=== PATIENT | male | born 1975 | race Caucasian/White ===

== ENCOUNTER 2017-10-10 21:12 | Emergency (ER) | payer OTHER ==
[~2017-10-10] VITALS: Ht 180.3 cm; Wt 109.1 kg
[~2017-10-10 21:12] MED LIST: AMBIEN 10MG10 MG PO; AMBIEN CR6.25 MG PO; ANUSOL-HC SUPPO25 MG RC; CEPHALEXIN500 M1 PO; EFFEXOR-XR150 MG PO; MULTI VITAMINS1 TAB PO; NO HOME MEDICATIONS; NORCO 325 MG-51 TAB PO; PREVACID 30MG30 M1 PO; TUMS500 MG
[2017-10-10 21:15] VITALS: TEMP 98.2
[2017-10-10 22:05] LABS: BASO # 0.1 (0.0-0.2); BASO % 0.6 % (0.0-2.0); EOS # 0.2 (0.0-0.7); EOS % 1.3 % (0-4.0); GRAN % 62.8 % (42.2-75.2); HEMATOCRIT 45.5 % (42.0-52.0); HEMOGLOBIN 15.7 g/dl (13.5-18.0); LYMPH # 4.6 (1.2-3.4); LYMPH % 28.8 % (20.0-51.0); MEAN CELL VOLUME 87 fl (80.0-100.0); MEAN CORPUSCULAR HEMOGLOBIN 30 pg (27.0-31.0); MEAN CORPUSCULAR HGB CONC 35 g/dl (33.0-37.0); MEAN PLATELET VOLUME 9.7 fl (7.4-10.4); MONO # 0.9 (0.1-0.6); MONO % 5.9 % (1.7-9.3); PLATELET COUNT 219 K/mm3 (130-400); RED BLOOD COUNT 5.22 M/mm3 (4.20-5.60)
[2017-10-10 22:20] LABS: ALBUMIN 4.8 gm/dL (3.5-5.0); BILIRUBIN,TOTAL 0.5 mg/dL (0.0-1.0); C-REACTIVE PROTEIN 0.6 mg/dL (0.0-0.9); CALCIUM 9.4 mg/dL (8.4-10.2); CREATININE, serum 1.13 mg/dL (0.66-1.25); POTASSIUM 3.7 mmol/L (3.4-5.0)
[2017-10-11 00:20] LABS: COLLECTION METHOD CLEAN CATCH
[2017-10-11 00:25] LABS: MUCOUS Present /lpf; PH 5 (5-8); SQUAMOUS EPITHELIAL 0-2 /hpf; URINE APPEARANCE Clear; URINE BACTERIA None Seen /hpf; URINE BILIRUBIN Negative (NEGATIVE); URINE BLOOD Negative (NEGATIVE); URINE COLOR Yellow; URINE GLUCOSE Negative (NEGATIVE); URINE KETONE Negative (NEGATIVE); URINE LEUKOCYTE ESTERASE Negative (NEGATIVE); URINE NITRATE Negative (NEGATIVE); URINE PROTEIN(semi-quant) Negative (NEGATIVE)
[2017-10-11] MEDS ORDERED: NORCO 325 MG-51 TAB PO (00:54)
[2017-10-11] MEDS ORDERED: PHENERGAN 25 TA25 MG PO (00:54)
[2017-10-11 00:59] VITALS: BP 124/78; PULSE 82
== END 2017-10-11 01:11 | disposition home or self-care (01) ==
LOC: COL.ER 21:12
PROVIDERS: Physician Assistant
DX: R10.31 Right lower quadrant pain (principal); I10 Essential (primary) hypertension; K21.9 Gastro-esophageal reflux disease without esophagitis; E78.5 Hyperlipidemia, unspecified; F43.10 Post-traumatic stress disorder, unspecified; F17.210 Nicotine dependence, cigarettes, uncomplicated
CPT/HCPCS: J1170; J2405; J7030; J7050; Q9967

== ENCOUNTER 2018-04-26 06:49 | Day surgery (SDC) | payer OTHER ==
[~2018-04-26] VITALS: Ht 180.3 cm; Wt 103.0 kg
[2018-04-26] VITALS (11 sets, daily range): BP systolic 133–147; BP diastolic 72–99; PULSE 77–104; TEMP 97.5–98.5
[~2018-04-26 06:49] MED LIST changes: +PHENERGAN 25 TA25 MG PO
[2018-04-26] MEDS ORDERED: INDERAL 10MG10 MG PO (08:04)
[2018-04-26] MEDS ORDERED: LIPITOR 10MG10 MG PO (08:05)
[2018-04-26] MEDS ORDERED: ZANTAC 300300 MG PO (08:05)
[2018-04-27 03:42] VITALS: BP 143/83; PULSE 87; TEMP 98.2
[2018-04-27 08:08] VITALS: BP 149/88; PULSE 73; TEMP 98.4
== END 2018-04-27 09:20 | disposition home or self-care (01) ==
LOC: SURG 06:49 → INPTSU 06:49 → SDCO 06:49 → EDSTATUS 09:00 → SURG 09:00 → SDCO 09:00 → SURG 12:52 → INPTSU 12:52 → SDCO 04-27 09:20 → SURG 04-27 09:20
DX: K44.9 Diaphragmatic hernia without obstruction or gangrene (principal); K21.0 Gastro-esophageal reflux disease with esophagitis; G47.00 Insomnia, unspecified; K59.00 Constipation, unspecified; E78.2 Mixed hyperlipidemia; I10 Essential (primary) hypertension; G25.81 Restless legs syndrome; F32.9 Major depressive disorder, single episode, unspecified; F43.10 Post-traumatic stress disorder, unspecified; F17.210 Nicotine dependence, cigarettes, uncomplicated
CPT/HCPCS: A9284; C1713; C1781; J0360; J0690; J1100; J1885; J2250; J2405; J2704; J2710; J3010; J7120

== ENCOUNTER 2018-04-29 02:21 | Emergency (ER) | payer OTHER ==
[~2018-04-29] VITALS: Ht 180.3 cm; Wt 100.0 kg
[~2018-04-29 02:21] MED LIST changes: +INDERAL 10MG10 MG PO; +LIPITOR 10MG10 MG PO; +ZANTAC 300300 MG PO
[2018-04-29 02:25] VITALS: PULSE 104; TEMP 98.9
[2018-04-29] MEDS ORDERED: NORCO 325 MG-51 TAB (02:48)
[2018-04-29 03:10] LABS: BASO # 0.1 (0.0-0.2); BASO % 0.5 % (0.0-2.0); EOS # 0.6 (0.0-0.7); EOS % 3.4 % (0-4.0); GRAN # 11.7 (1.4-6.5); GRAN % 71.1 % (42.2-75.2); HEMATOCRIT 47.9 % (42.0-52.0); HEMOGLOBIN 16.1 g/dl (13.5-18.0); LYMPH # 2.7 (1.2-3.4); LYMPH % 16.3 % (20.0-51.0); MEAN CELL VOLUME 87 fl (80.0-100.0); MEAN CORPUSCULAR HEMOGLOBIN 29 pg (27.0-31.0); MEAN CORPUSCULAR HGB CONC 34 g/dl (33.0-37.0); MEAN PLATELET VOLUME 10.1 fl (7.4-10.4); MONO # 1.3 (0.1-0.6); MONO % 8.1 % (1.7-9.3); PLATELET COUNT 228 K/mm3 (130-400); RED BLOOD COUNT 5.52 M/mm3 (4.20-5.60); REDCELL DISTRIBUTION WIDTH-CV 13.4 % (11.5-14.5)
[2018-04-29 03:19] LABS: ALANINE AMINOTRANSFERASE 75 U/L (21-72); ALKALINE PHOSPHATASE 105 U/L (50-136); ANION GAP 13 mmol/L (7-16); AST,SGOT 30 U/L (15-37); BLOOD UREA NITROGEN 14 mg/dL (9-20); CALCIUM 8.6 mg/dL (8.4-10.2); CARBON DIOXIDE 23 mmol/L (22-30); CHLORIDE 105 mmol/L (98-107); CREATININE, serum 0.76 mg/dL (0.66-1.25); GLUCOSE 112 mg/dL (74-106); POTASSIUM 3.3 mmol/L (3.4-5.0); SODIUM 141 mmol/L (137-145); TOTAL PROTEIN 7.2 gm/dL (6.4-8.2)
[2018-04-29 03:20] LABS: LIPASE < 10 U/L (23-300)
[2018-04-29 05:22] LABS: COLLECTION METHOD CLEAN CATCH
[2018-04-29 05:29] LABS: MUCOUS Present /lpf; PH 6 (5-8); SQUAMOUS EPITHELIAL None Seen /hpf; URINE APPEARANCE Clear; URINE BACTERIA None Seen /hpf; URINE BILIRUBIN Negative (NEGATIVE); URINE BLOOD Negative (NEGATIVE); URINE COLOR Yellow; URINE GLUCOSE Negative (NEGATIVE); URINE KETONE 1+ (NEGATIVE); URINE LEUKOCYTE ESTERASE Negative (NEGATIVE); URINE NITRATE Negative (NEGATIVE); URINE PROTEIN(semi-quant) 1+ (NEGATIVE); URINE RBC 0-2 /hpf; URINE UROBILINOGEN >=4.0 mg/dL (NEGATIVE)
[2018-04-29] MEDS ORDERED: MIRALAX 255 GM255 GM PO (06:34)
[2018-04-29] MEDS ORDERED: DULCOLAX STOOL100 MG PO (06:34)
[2018-04-29] MEDS ORDERED: PERCOCET 325 MG1 TA2 PO (06:34)
[2018-04-29] MEDS ORDERED: FLEXERIL 1010 MG/TAB PO (06:35)
[2018-04-29 07:19] VITALS: BP 150/108
== END 2018-04-29 07:12 | disposition home or self-care (01) ==
LOC: COL.ER 02:21
PROVIDERS: Emergency Medicine
DX: K59.00 Constipation, unspecified (principal); M54.9 Dorsalgia, unspecified; G89.18 Other acute postprocedural pain; I10 Essential (primary) hypertension; E78.5 Hyperlipidemia, unspecified; F32.9 Major depressive disorder, single episode, unspecified; K21.0 Gastro-esophageal reflux disease with esophagitis; G47.30 Sleep apnea, unspecified; Z79.891 Long term (current) use of opiate analgesic
CPT/HCPCS: J1885; J2270; J2405; J7030; Q9967

== ENCOUNTER 2018-05-01 18:41 | Observation (INO) | payer OTHER ==
[~2018-05-01] VITALS: Ht 332.7 cm; Wt 99.0 kg
[~2018-05-01 18:41] MED LIST changes: +DULCOLAX STOOL100 MG PO; +FLEXERIL 1010 MG/TAB PO; +MIRALAX 255 GM255 GM PO; +NORCO 325 MG-51 TAB; +PERCOCET 325 MG1 TA2 PO
[2018-05-01 19:58] LABS: ALBUMIN 4.6 gm/dL (3.5-5.0); BILIRUBIN,TOTAL 1.3 mg/dL (0.0-1.0); CALCIUM 9.6 mg/dL (8.4-10.2); CREATININE, serum 0.89 mg/dL (0.66-1.25); POTASSIUM 3.9 mmol/L (3.4-5.0); TOTAL PROTEIN 8.5 gm/dL (6.4-8.2)
[2018-05-01] MEDS ORDERED: EFFEXOR100 MG PO (20:11)
[2018-05-01] MEDS ORDERED: INDERAL 10MG10 MG PO (20:11)
[2018-05-01] MEDS ORDERED: AMBIEN 10MG10 MG PO (20:13)
[2018-05-01 20:21] LABS: BASO # 0.1 (0.0-0.2); BASO % 0.5 % (0.0-2.0); EOS # 0.4 (0.0-0.7); EOS % 2.4 % (0-4.0); GRAN # 13.6 (1.4-6.5); GRAN % 76.9 % (42.2-75.2); HEMATOCRIT 50.1 % (42.0-52.0); HEMOGLOBIN 16.8 g/dl (13.5-18.0); LYMPH # 2.3 (1.2-3.4); LYMPH % 12.9 % (20.0-51.0); MEAN CELL VOLUME 87 fl (80.0-100.0); MEAN CORPUSCULAR HEMOGLOBIN 29 pg (27.0-31.0); MEAN CORPUSCULAR HGB CONC 34 g/dl (33.0-37.0); MEAN PLATELET VOLUME 10.5 fl (7.4-10.4); MONO # 1.2 (0.1-0.6); MONO % 6.6 % (1.7-9.3); PLATELET COUNT 279 K/mm3 (130-400); RED BLOOD COUNT 5.79 M/mm3 (4.20-5.60)
[2018-05-01] MEDS ORDERED: NORCO 325 MG-51 TAB PO (20:54)
[2018-05-01] MEDS ORDERED: LIPITOR 10MG10 MG PO (20:55)
[2018-05-01 22:45] VITALS: BP 161/99; PULSE 91; TEMP 98.6
[2018-05-02 03:42] VITALS: BP 145/94; PULSE 87; TEMP 97.9
[2018-05-02 07:34] VITALS: BP 141/92; PULSE 79; TEMP 97.8
[2018-05-02 12:36] VITALS: BP 137/79; PULSE 100; TEMP 98.7
[2018-05-02 16:51] VITALS: BP 137/93; PULSE 88; TEMP 97.8
[2018-05-02 20:00] VITALS: BP 150/97; PULSE 98; TEMP 98.9
[2018-05-03] VITALS: BP 147/91; PULSE 94; TEMP 98.5
[2018-05-03 04:00] VITALS: BP 143/100; PULSE 93; TEMP 97.6
[2018-05-03 07:21] LABS: HEMATOCRIT 45.1 % (42.0-52.0); MEAN CELL VOLUME 89 fl (80.0-100.0); MEAN CORPUSCULAR HEMOGLOBIN 29 pg (27.0-31.0); MEAN CORPUSCULAR HGB CONC 33 g/dl (33.0-37.0); MEAN PLATELET VOLUME 10.2 fl (7.4-10.4); PLATELET COUNT 223 K/mm3 (130-400); RED BLOOD COUNT 5.07 M/mm3 (4.20-5.60)
[2018-05-03 07:22] LABS: HEMOGLOBIN 14.8 g/dl (13.5-18.0)
[2018-05-03 07:39] LABS: CALCIUM 9.2 mg/dL (8.4-10.2); CREATININE, serum 0.75 mg/dL (0.66-1.25)
[2018-05-03 08:00] VITALS: BP 153/97; PULSE 99; TEMP 98.6
[2018-05-03 12:20] VITALS: BP 146/91; PULSE 94; TEMP 98.6
== END 2018-05-03 14:35 | disposition home or self-care (01) ==
LOC: COL.ER 18:41 → SURG 20:39
PROVIDERS: Emergency Medicine; Surgery
DX: R10.9 Unspecified abdominal pain (principal); K21.9 Gastro-esophageal reflux disease without esophagitis; G47.30 Sleep apnea, unspecified; I10 Essential (primary) hypertension; K59.00 Constipation, unspecified; G25.81 Restless legs syndrome; E78.5 Hyperlipidemia, unspecified; F43.10 Post-traumatic stress disorder, unspecified; F32.9 Major depressive disorder, single episode, unspecified; F17.210 Nicotine dependence, cigarettes, uncomplicated
CPT/HCPCS: G0378; J1170; J1956; J2765; J7030

== ENCOUNTER → 2018-08-03 | Outpatient (CLI) | payer OTHER ==
[~2018-08-03] MED LIST changes: +EFFEXOR100 MG PO
== END ==
LOC: COL.RAD 07:00
DX: M25.512 Pain in left shoulder (principal)

== ENCOUNTER 2018-11-30 20:20 | Emergency (ER) | payer OTHER ==
[2018-11-30 20:23] VITALS: BP 139/101; TEMP 97.9
[2018-11-30] MEDS ORDERED: AMBIEN CR6.25 MG PO (20:54)
[2018-11-30] MEDS ORDERED: MIRAPEX0.5 MG PO (20:56)
[2018-11-30 21:10] LABS: BASO # 0.1 (0.0-0.2); BASO % 0.7 % (0.0-2.0); EOS # 0.2 (0.0-0.7); EOS % 1.5 % (0-4.0); GRAN # 7.4 (1.4-6.5); GRAN % 59.3 % (42.2-75.2); HEMATOCRIT 48.6 % (42.0-52.0); HEMOGLOBIN 16.5 g/dl (13.5-18.0); LYMPH # 3.9 (1.2-3.4); LYMPH % 31.7 % (20.0-51.0); MEAN CELL VOLUME 87 fl (80.0-100.0); MEAN CORPUSCULAR HEMOGLOBIN 30 pg (27.0-31.0); MEAN CORPUSCULAR HGB CONC 34 g/dl (33.0-37.0); MONO # 0.8 (0.1-0.6); MONO % 6.3 % (1.7-9.3); PLATELET COUNT 207 K/mm3 (130-400); REDCELL DISTRIBUTION WIDTH-CV 13.5 % (11.5-14.5)
[2018-11-30 21:21] LABS: ALANINE AMINOTRANSFERASE 26 U/L (21-72); ALBUMIN 4.4 gm/dL (3.5-5.0); ALKALINE PHOSPHATASE 133 U/L (50-136); ANION GAP 8 mmol/L (7-16); AST,SGOT 29 U/L (15-37); BILIRUBIN,TOTAL 0.4 mg/dL (0.0-1.0); BLOOD UREA NITROGEN 13 mg/dL (9-20); CALCIUM 9.6 mg/dL (8.4-10.2); CARBON DIOXIDE 27 mmol/L (22-30); CHLORIDE 105 mmol/L (98-107); CREATININE, serum 0.93 mg/dL (0.66-1.25); GLUCOSE 100 mg/dL (74-106); LIPASE 59 U/L (23-300); POTASSIUM 3.9 mmol/L (3.4-5.0); SODIUM 140 mmol/L (137-145); TOTAL PROTEIN 7.7 gm/dL (6.4-8.2)
[2018-11-30 21:23] LABS: C-REACTIVE PROTEIN < 0.5 mg/dL (0.0-0.9)
[2018-11-30 22:17] LABS: COLLECTION METHOD CLEAN CATCH
[2018-11-30 22:22] LABS: MUCOUS Present /lpf; PH 7 (5-8); SQUAMOUS EPITHELIAL 0-2 /hpf; URINE APPEARANCE Clear; URINE BACTERIA None Seen /hpf; URINE BILIRUBIN Negative (NEGATIVE); URINE BLOOD Negative (NEGATIVE); URINE COLOR Yellow; URINE GLUCOSE Negative (NEGATIVE); URINE KETONE Negative (NEGATIVE); URINE LEUKOCYTE ESTERASE Negative (NEGATIVE); URINE NITRATE Negative (NEGATIVE); URINE PROTEIN(semi-quant) Negative (NEGATIVE); URINE RBC 0-2 /hpf; URINE WBC 0-2 /hpf
[2018-11-30] MEDS ORDERED: MINIPRESS 1M1 MG/CAP PO (22:22)
[2018-11-30 22:58] VITALS: PULSE 88
== END 2018-11-30 22:58 | disposition home or self-care (01) ==
LOC: COL.ER 20:20
PROVIDERS: Emergency Medicine
DX: R10.31 Right lower quadrant pain (principal); E78.5 Hyperlipidemia, unspecified; F17.210 Nicotine dependence, cigarettes, uncomplicated; K21.9 Gastro-esophageal reflux disease without esophagitis; F43.10 Post-traumatic stress disorder, unspecified
CPT/HCPCS: J1170; J1885; J2405; J7030; Q9967

== ENCOUNTER 2019-09-12 20:16 | Emergency (ER) | payer OTHER ==
[~2019-09-12] VITALS: Ht 180.3 cm; Wt 104.5 kg
[~2019-09-12 20:16] MED LIST changes: +MINIPRESS 1M1 MG/CAP PO; +MIRAPEX0.5 MG PO
[2019-09-12 20:19] VITALS: TEMP 98.4
[2019-09-12 21:06] LABS: BASO # 0.1 (0.0-0.2); BASO % 0.6 % (0.0-2.0); EOS # 0.2 (0.0-0.7); EOS % 1.7 % (0-4.0); GRAN # 6.1 (1.4-6.5); GRAN % 60.2 % (42.2-75.2); HEMATOCRIT 46.1 % (42.0-52.0); HEMOGLOBIN 15.3 g/dl (13.5-18.0); LYMPH % 29.9 % (20.0-51.0); MEAN CELL VOLUME 86 fl (80.0-100.0); MEAN CORPUSCULAR HEMOGLOBIN 29 pg (27.0-31.0); MEAN CORPUSCULAR HGB CONC 33 g/dl (33.0-37.0); MEAN PLATELET VOLUME 9.8 fl (7.4-10.4); MONO # 0.7 (0.1-0.6); MONO % 7.2 % (1.7-9.3); PLATELET COUNT 207 K/mm3 (130-400); RED BLOOD COUNT 5.35 M/mm3 (4.20-5.60); REDCELL DISTRIBUTION WIDTH-CV 13.2 % (11.5-14.5)
[2019-09-12 21:10] LABS: INR 0.9 (0.8-3.0); PROTHROMBIN TIME 10.7 SECONDS (9.7-12.8)
[2019-09-12 21:21] LABS: ANION GAP 8 mmol/L (7-16); BLOOD UREA NITROGEN 17 mg/dL (9-20); C-REACTIVE PROTEIN 0.6 mg/dL (0.0-0.9); CALCIUM 9.3 mg/dL (8.4-10.2); CARBON DIOXIDE 26 mmol/L (22-30); CHLORIDE 108 mmol/L (98-107); CREATININE, serum 1.23 (0.66-1.25); GLUCOSE 94 mg/dL (74-106); POTASSIUM 4.1 mmol/L (3.4-5.0); SODIUM 142 mmol/L (137-145)
[2019-09-12 21:36] LABS: TROPONIN-I < 0.012 ng/mL (0.000-0.035)
[2019-09-12] MEDS ORDERED: NORCO 325 MG-51 TAB PO (22:30)
[2019-09-12] MEDS ORDERED: CEPHALEXIN500 M1 PO (22:30)
[2019-09-13 00:09] VITALS: BP 140/95
[2019-09-13 00:19] VITALS: PULSE 92
== END 2019-09-13 00:19 | disposition home or self-care (01) ==
LOC: COL.ER 20:16
PROVIDERS: Emergency Medicine
DX: T63.301A Toxic effect of unspecified spider venom, accidental (unintentional), initial encounter (principal); L25.8 Unspecified contact dermatitis due to other agents
CPT/HCPCS: J1170; J1885; J2060; J2405; J7030

== ENCOUNTER 2020-03-04 12:45 | Emergency (ER) | payer OTHER ==
[~2020-03-04] VITALS: Ht 180.3 cm; Wt 100.0 kg
[~2020-03-04 12:45] MED LIST changes: +ANTIVERT 25MG25 MG PO; +INDERAL40 MG PO; +MIRAPEX 1MG PO; -MIRAPEX0.5 MG PO; +NEXIUM 20MG20 MG PO
[2020-03-04 12:51] VITALS: BP 151/93; TEMP 97.8
[2020-03-04] MEDS ORDERED: ALLEGRA-D 24HR1 T24 PO (13:58)
[2020-03-04] MEDS ORDERED: AMOXICILLIN 8751 TAB PO (13:58)
[2020-03-04] MEDS ORDERED: NORCO 325 MG-51 TAB PO (13:58)
[2020-03-04 14:12] VITALS: PULSE 84
== END 2020-03-04 14:10 | disposition home or self-care (01) ==
LOC: COL.ER 12:45
DX: J32.9 Chronic sinusitis, unspecified (principal); F17.210 Nicotine dependence, cigarettes, uncomplicated; Z87.09 Personal history of other diseases of the respiratory system

== ENCOUNTER 2022-03-19 04:23 | Emergency (ER) | payer OTHER ==
[~2022-03-19] VITALS: Ht 180.3 cm; Wt 104.5 kg
[~2022-03-19 04:23] MED LIST changes: +ALLEGRA-D 24HR1 T24 PO; +AMOXICILLIN 8751 TAB PO
[2022-03-19 04:27] VITALS: TEMP 98
[2022-03-19] MEDS ORDERED: CEPHALEXIN500 M1 PO (05:15)
[2022-03-19 05:37] VITALS: BP 137/99; PULSE 95
== END 2022-03-19 05:37 | disposition home or self-care (01) ==
LOC: COL.ER 04:23
DX: T81.31XA Disruption of external operation (surgical) wound, not elsewhere classified, initial encounter (principal); S91.312A Laceration without foreign body, left foot, initial encounter; Z98.890 Other specified postprocedural states; Z28.310 Unvaccinated for COVID-19; W22.8XXA Striking against or struck by other objects, initial encounter